=== PATIENT | male | born 1940 | race Caucasian/White ===

== ENCOUNTER 2016-09-22 13:09 | Outpatient (CLI) | payer OTHER ==
[~2016-09-22 13:09] MED LIST: ANDROGEL1 % TOP; ATORVASTATIN CA20 MG PO; COZAAR50 MG PO; ENALAPRIL MALE2.5 MG PO; FISH OIL1000 M1 PO; FOLIC ACID1 MG PO; FOLIC ACID400 MCG; GLIPIZIDE5 MG PO; HYDROCHLOROTHIA25 MG PO; IRON325 MG PO; LIPITOR10 MG PO; LOPID600 MG PO; MEIJER ASPIRIN E5 GR; METFORMIN HCL500 MG PO; MULTIPLE VITAMIN PO; PERCOCET1 TA4 PO; PRILOSEC20 MG; PRILOSEC20 MG PO; SAM E PO; TENORMIN25 MG PO; VITAMIN D-31000 UNIT PO; WELLBUTRIN SR200 MG PO
--- NOTE | 2016-09-22 14:28 | DIAGNOSTIC IMAGING REPORT ---
PROCEDURE: XR CHEST 2 VIEW INDICATION: POLYCYTHEMIA TECHNIQUE: PA and lateral views. COMPARISON: Compared to chest x-ray and 05/27/2016. FINDINGS: Lungs are clear. Heart and mediastinum are normal. Mild dextroscoliosis of the thoracic spine with mild to moderate degenerative changes (no change). IMPRESSION: 1. Negative chest. 2. Findings discussed with the patient.
== END 2016-09-22 23:00 ==
LOC: XR SRH 13:09
DX: D75.1 Secondary polycythemia (principal)